=== PATIENT | female | born 1960 | race Caucasian/White ===

== ENCOUNTER 2023-04-25 08:12 | Outpatient (REF) | payer BC, SELFPAY ==
--- NOTE | ~2023-04-25 | XR_ITS ---
EXAMINATION: XR HAND, LEFT CLINICAL INFORMATION: Pain COMPARISON: None available. TECHNIQUE: PA, lateral, and oblique views of the left hand. FINDINGS: There is a nondisplaced fracture of the distal phalanx of the thumb intra-articular with the IP joint. No other fracture. Mild osteoarthritis at the IP joints. Soft tissues are unremarkable. XR/XR hand LT min 3V IMPRESSION: Fracture of the proximal phalanx of the thumb intra-articular with the IP joint Findings will be communicated by the [place] work flow cutting supervisor
== END 2023-04-25 08:13 | disposition home or self-care (01) ==
LOC: HO.HOSX 08:12
PROVIDERS: Visit Provider Physician Assistant
DX: S62.502A Fracture of unspecified phalanx of left thumb, initial encounter for closed fracture (principal)
CPT/HCPCS: 29085; 73130

== ENCOUNTER 2023-05-27 11:28 | Outpatient (REF) | payer BC, SELFPAY ==
--- NOTE | ~2023-05-27 | XR_ITS ---
EXAMINATION: XR HAND, LEFT CLINICAL INFORMATION: Pain COMPARISON: 04/25/23 left hand radiographs. TECHNIQUE: PA, lateral, and oblique views of the left hand. FINDINGS: There is a nondisplaced intra-articular fracture of the distal phalanx redemonstrated. There is increased sclerosis consistent with partial interval healing. No new fracture. Stable osteoarthritis at the IP joints. Soft tissues are unremarkable. XR/XR hand LT min 3V IMPRESSION: There is a nondisplaced intra-articular fracture of the distal phalanx redemonstrated. There is increased sclerosis consistent with partial interval healing.
== END 2023-05-27 11:29 | disposition home or self-care (01) ==
LOC: HO.HOSX 11:28
PROVIDERS: Visit Provider Physician Assistant
DX: S62.502D Fracture of unspecified phalanx of left thumb, subsequent encounter for fracture with routine healing (principal)
CPT/HCPCS: 73130

== ENCOUNTER 2023-05-27 14:22 | Outpatient (AMB) | payer BC, SELFPAY ==
--- NOTE | 2023-05-27 14:45 | A.OFFVIS_ITS ---
Intake Vital Signs 05/27/23 14:54 Height 5 ft 4 in Weight 150 lb BMI 25.7 Intake Visit Reasons: OV-Fracture of left fingers-w/XR Intake Note: Evonne is a 62 year old female who presents today for a follow up of avulsion fracture of left thumb, 02/17/23. Cast removed and xrays updated. Patient reports pain in her thumb that radiates down her forearm. She has sharp pain in wrist area. Numbness and tingling in thumb, 2nd and 3rd digit. States felt cast was too tight on her thumb. Patient has an increase in pain with cast removed. Allergies sulfamethoxazole [From Bactrim] Allergy (Severe, Verified 04/25/23 10:35) throat swelling trimethoprim [From Bactrim] Allergy (Severe, Verified 04/25/23 10:35) throat swelling HPI OV-Fracture of left fingers-w/XR HPI Details 62-year-old right hand dominant female who presents in the office today for a follow up of a left thumb avulsion fracture, which occurred on 04/17/2023 status post a fall going down a water slide while the patient was in the [facility] [place]. The patient reports she has pain in her thumb that radiates to the forearm. She claims to have a sharp pain in the wrist area. She confirms numbness and tingling in the thumb, 2nd, and 3rd digits. She has a complaint that the cast was to tight on her thumb. She states she has increased pain after the cast was removed. She states the finger is throbbing. She confirms she has been work on the ROM exercises she was instructed to do. She states the pain would increase at night. The patient states she called the office a week ago about the pain, but states she did not receive a call back. Patient has a complaint of foot pain from 5 years ago. 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 She states overall she has been doing okay. She was recently placed in cast for treatment. Patient was accompanied in the office today by her . [facility] Medical History History of high blood pressure Surgical History History of ankle surgery Social History Alcohol intake: never Patient Tobacco Use Status: Never used Tobacco Current occupational status: employed Current occupation: Visiting Nurse/ Right hand dominant Review of Systems Const All systems reviewed & are unremarkable except as noted in HPI and below Physical Exam Vital Signs: BMI result Body Mass Index 25.7 Const General: cooperative, healthy appearing, comfortable, no acute distress, well developed and alert Orientation/consciousness: patient oriented x3 HEENT Head: Yes normal to inspection, Yes normocephalic and Yes atraumatic Eyes General: appearance normal, both eyes and all related structures Resp Effort & Inspection: normal respiratory effort and able to speak in complete sentences Cardio Rate: regular rate Peripheral pulses: Peripheral pulses 2+ throughout GI Palpation (GI): Soft to palpation Skin Lesions: no lesions Rashes: no rashes Neuro General: patient oriented x3 Extrem Other: Left hand: Tenderness to palpation at the IP joint, CMC joint of the left thumb extending to the radial aspect of the wrist. Anatomical snuffbox and scaphoid tubercle tenderness. Significant stiffness in all digits and wrist. Medial nerve distribution numbness and tingling on the thumb and index finger on the volar aspect of the hand. Capillary refill is brisk. Assessment & Plan Assessment & Plan (1) Avulsion fracture of left thumb: Code(s): S62.502A - Fracture of unspecified phalanx of left thumb, initial encounter for closed fracture Plan Ms. Hung is a 62-year-old right hand dominant female who presents in the office today for a follow up of a left thumb avulsion fracture, which occurred on 04/17/2023 status post a fall going down a water slide while the patient was in the [facility] [place]. The patient reports she has pain in her thumb that radiates to the forearm. She claims to have a sharp pain in the wrist area. She confirms numbness and tingling in the thumb, 2nd, and 3rd digits. She has a complaint that the cast was to tight on her thumb. She states she has increased pain after the cast was removed. She states the finger is throbbing. She confirms she has been work on the ROM exercises she was instructed to do. She states the pain would increase at night. The patient states she called the office a week ago about the pain, but states she did not receive a call back. Patient has a complaint of foot pain from 5 years ago. 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 She states overall she has been doing okay. She was recently placed in cast for treatment. Patient was accompanied in the office today by her . Dr. June was available to see the patient with me while in the office today and a collaborative treatment plan was made. She will be referred for a stat MRI for further evaluation of the scaphoid and thumb. She will be placed in a velcro wrist splint, off the shelf, while in the office today. She can only take the splint off for hygiene purposes and to work on the exercises demonstrated in the office. She is not to lifting anything heavier then a cell phone or coffee cup. She can perform any high impact activities with the left hand. She was demonstrated exercises for the hand, digits, and wrist for the patient to work on while at home by Dr. June, which she demonstrates understanding. Dr. June also instructed her to touch the hand and allow the digits to touch objects to help with the sensation and sensitivity in the hand. She demonstrated understanding to this as well. She was instructed to call the office next week if she has not heard from them. In the event the patient is still feeling numbness and tingling the next step would be to order an EMG for further evaluation. Follow up will be in 2 weeks, or sooner if needed. X-rays of the left hand which were obtained while in the office today and were reviewed by me, Megan Mason PA-C, revealed routine healing of fracture of the proximal phalanx of the thumb intra-articular with the IP joint Orders: Orders XR hand LT min 3V 05/27/23 M79.643 - Pain in unspecified hand MR wrist LT wo con 05/27/23 S62.502A - Fracture of unspecified phalanx of left thumb, initial encounter for closed fracture Patient Instructions: Scribed for Megan Mason PA-C by Margareth Ospina medical field representative, on 05/27/2023 at 2:45 pm, EST. Your attestation Coding Level of Care Code Global (28044) Diagnoses Avulsion fracture of left thumb S62.502A
[2023-05-27 14:54] VITALS: BMI 25.7
== END 2023-05-27 15:25 | disposition home or self-care (01) ==
PROVIDERS: PCP Internal Medicine; Visit Provider Physician Assistant
DX: S62.502A Fracture of unspecified phalanx of left thumb, initial encounter for closed fracture (principal)
CPT/HCPCS: 99024

== ENCOUNTER 2023-06-22 08:46 | Outpatient (AMB) | payer BC, SELFPAY ==
[2023-06-22 08:51] VITALS: BMI 25.7
--- NOTE | 2023-06-22 08:51 | A.OFFVIS_ITS ---
Intake Vital Signs 06/22/23 08:51 Height 5 ft 4 in Weight 150 lb BMI 25.7 Intake Visit Reasons: OV-Fracture of left fingers-w/XR Intake Note: Evonne is a 62 year old female who presents today for a follow up visit for her avulsion fracture of left thumb, DOI 02/17/23 s/p falling down while vacationing in [facility]. Patient last seen with Mark Mason on 05/27/23 who sent patient for MRI study. Patient cast was removed on 05/27/23 and placed in a velcro wrist brace. Currently states she cont's to have pain and throbbing in thumb. Reports her thumb feels as if it is going to lock, hears clicking in thumb, cont's to wear wrist brace. Patient would also like to review MRI and CTS. No EMG done. Pain is currently at 8/10 on pain scale. Allergies sulfamethoxazole [From Bactrim] Allergy (Severe, Verified 06/22/23 08:51) throat swelling trimethoprim [From Bactrim] Allergy (Severe, Verified 06/22/23 08:51) throat swelling HPI OV-Fracture of left fingers-w/XR HPI Details Evonne is a 62 year old right hand dominant woman who presents for an MRI review of her left thumb and wrist pain. She had a left thumb distal phalanx base fracture that went on to heal well with cast treat. DOI: 02/17/23. This occurred while she slipped and fell by a hotel pool on vacation in [facility] [place]. She complains of continued pain in her thumb, along with a throbbing sensation. She was given a brace to wear by BAILEY Guzman on 05/27/23, and she continues to wear this. She feels her thumb is going to lock at times and reports a clicking sensation in her thumb. She says she had been seen for right sided wrist pain in the past at [facility], was given a steroid injection for de Quervain, and referred to a clinic in [place] to assess for De Quervains. She reports she had all kinds of problems and ended up having surgery. This is doing well now. She has a fairly long, healed surgical scar on the radial aspect of her right distal forearm. 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 [facility] Medical History History of high blood pressure Surgical History History of ankle surgery Social History Alcohol intake: never Patient Tobacco Use Status: Never used Tobacco Current occupational status: employed Current occupation: Visiting Nurse/ Right hand dominant Review of Systems Const All systems reviewed & are unremarkable except as noted in HPI and below Physical Exam Vital Signs: BMI result Body Mass Index 25.7 Const General: cooperative, healthy appearing and no acute distress Orientation/consciousness: patient oriented x3 HEENT Head: Yes normocephalic and Yes atraumatic Eyes EOM: EOMs intact bilaterally Resp Effort & Inspection: normal respiratory effort and able to speak in complete sentences Cardio Jugular venous distension: no JVD Skin General skin exam: turgor normal Rashes: no rashes Neuro General: patient oriented x3 Extrem Other: Evaluation of Left Upper Extremity: The patient is alert, oriented, and in no acute distress Neuro: Median, Ulnar, Radial nerves motor and sensory intact and sensation is normal to the tips of all digits Vascular: Cap refill brisk ROM: With encouragement she could demonstrate active flexion and extension of the thumb No locking, catching, or triggering She did have a cracking sound in the IP joint of the thumb Skin: No lacerations or abrasions. General: No Ecchymosis. No Erythema or evidence of infection. DIP joint pain 8/10 according to patient, and more generalized pain extending up the dorsal aspect of the thumb to the radial aspect of the wrist. However the most painful area with 1 finger was the D IP joint. Pain in the MCP joint, IP joint, and 1st dorsal compartment Apprehensive to have me touch her anywhere about the thumb Radiographs: 3 views of the left thumb were taken, viewed, and compared to prior radiographs today in clinic. They show a healed fracture of the volar ulnar base of the distal phalanx, with satisfactory fracture alignment. She has some osteoarthritic changes in the thumb IP and basal joints MRI: Outside MRI, report only available, and scanned into chart IMPRESSION: 1. Healing fracture at the medial margin of the thumb distal phalangeal base. No new fractures are identified 2. Moderate OA in the thumb IP joint and 1st CMC joint. More mild OA in the 1st MCP joint. 3. Intact ligaments Please see scanned report for additional details Connor Mendez. 06/10/23 Psych Appearance: grossly normal Affect: normal affect Attitude: cooperative Assessment & Plan Assessment & Plan (1) Fracture of distal phalanx of left thumb: Code(s): S62.522A - Displaced fracture of distal phalanx of left thumb, initial encounter for closed fracture (2) Arthritis of carpometacarpal (CMC) joint of left thumb: Code(s): M18.12 - Unilateral primary osteoarthritis of first carpometacarpal joint, left hand (3) Stiffness of left hand joint: Code(s): M25.642 - Stiffness of left hand, not elsewhere classified Plan Assessment & Plan: 1. Left thumb distal phalanx fracture DOI: 02/17/23 I educated her about this condition & reviewed her MRI with her This has gone on to heal No further treatment indicated 2. Left thumb stiffness Secondary to immobilization following her distal phalanx fracture 3. Left basal joint, MCP joint, and IP joint osteo arthritis I educated her about these conditions I demonstrated ROM exercises in clinic that she will perform at home She will discontinue her Velcro wrist splint at this time I ordered OT hand therapy to work on ROM, desensitization, and normalizing hand function I discussed activity modification, she is to avoid ay heavy or repetitive pinching or gripping activities She will work on ROM exercises at home and use her hand for light weight activities She can follow up prn Please note that greater than 30 minutes was spent with this patient going over the history, evaluating the patient and radiographs, formulating possible treatment options, discussing them with the patient, and documenting the visit. Scribed for Kelly June MD by Darrell Hammond, medical records coder, on 06/22/23 at 9:25 AM, EST. Orders: Orders XR hand LT min 3V Today M79.642 - Pain in left hand OT Evaluation and Treatment Today M18.12 - Unilateral primary osteoarthritis of first carpometacarpal joint, left hand, M25.642 - Stiffness of left hand, not elsewhere classified, S62.522A - Displaced fracture of distal phalanx of left thumb, initial encounter for closed fracture Coding Level of Care Code Est Pt Level 4 (80175) Diagnoses Fracture of distal phalanx of left thumb S62.522A Arthritis of carpometacarpal (CMC) joint of left thumb M18.12 Stiffness of left hand joint M25.642
== END 2023-06-22 09:30 | disposition home or self-care (01) ==
PROVIDERS: PCP Internal Medicine; Visit Provider Orthopaedic Surgery
DX: S62.522D Displaced fracture of distal phalanx of left thumb, subsequent encounter for fracture with routine healing (principal); M18.12 Unilateral primary osteoarthritis of first carpometacarpal joint, left hand; M25.642 Stiffness of left hand, not elsewhere classified
CPT/HCPCS: 99214

== ENCOUNTER 2023-06-22 12:43 | Outpatient (REF) | payer BC, SELFPAY ==
--- NOTE | ~2023-06-22 | XR_ITS ---
EXAMINATION: XR HAND, LEFT CLINICAL INFORMATION: Pain COMPARISON: None available. TECHNIQUE: PA, lateral, and oblique views of the left hand. FINDINGS: There is loss of PIP and DIP joint space with no bony erosive changes. There is minimal periarticular spurring DIP joint fifth digit. No visible acute fracture or dislocation especially no abnormality involving the first metacarpal. The soft tissues are normal. XR/XR hand LT min 3V IMPRESSION: Mild degenerative changes left hand.
== END 2023-06-22 12:44 | disposition home or self-care (01) ==
LOC: HO.HOSX 12:43
PROVIDERS: Visit Provider Orthopaedic Surgery
DX: S62.522A Displaced fracture of distal phalanx of left thumb, initial encounter for closed fracture (principal); M18.12 Unilateral primary osteoarthritis of first carpometacarpal joint, left hand
CPT/HCPCS: 73130

== ENCOUNTER 2023-07-26 10:30 | Outpatient (RCR) | payer BC, SELFPAY ==
--- NOTE | 2023-06-29 14:56 | MHC.OT.EP ---
[address] [phone] Occupational Therapy Plan of Care Patient Name: Evonne Hung Date of Evaluation: 06/29/23 Diagnosis: Left thumb distal phalanx base fracture L CMC arthritis Pain Location: Pain in L thumb Current: 9/10 Best: 8/10 Pain Score: 9 Pain Scale Used: Numeric (0 - 10) Aggravating Factors: Any movement, gripping Alleviating Factors: Ice, advil, rest Assessment: Pt is a 62 y/o female who presents s/p L thumb distal phalanx base fracture on 04/17/23, cast removed on 05/27/23. Splint was recently discharged by Dr. June. Pts primary complaint is constant 8/10 pain throughout L thumb, stiffness in MCP/DIP joints, and decreased functional use. Pt reports some catching and hears clicking in thumb with active range. Gross supervisor tile and mottle strength is 45# on the R compared to 10# on the left. An 88.6% limitation is reported per the Quick DASH assessment. Pt would benefit from skilled OT services to address noted barriers and assist in return to PLOF. Frequency and Duration: The patient will be seen 2x/wk for 6 weeks Short Term Goals: Decrease L thumb pain <5/10 Improve L thumb MCP flex and radial Abd by 10 degrees Initiate desensitizing and ROM [employer] functional use to grasp coffee cup with L hand Tactical Debriefer Officer Goals: Pain free with BADL's/IADL's Improve L thumb AROM to WNL's Gross grasp >30# Improve FMC to WFL's for increased ease with work tasks Quick DASH <25% Treatment Plan: Therapeutic Exercise Therapeutic Activity Home Exercise Program Patient Education Desensitization/Sensory Re-ed Ultrasound Iontophoresis Fluidotherapy MHP Cold Packs Joint Mobilization Soft Tissue Mobilization Electronically Signed By: Apryl Velásquez MS OTR/L Please Sign and return to therapist. Thank you once again for your referral.
== END 2023-09-14 10:51 | disposition home or self-care (01) ==
LOC: HO.OT 10:30
PROVIDERS: PCP Internal Medicine; Visit Provider Orthopaedic Surgery
DX: M25.642 Stiffness of left hand, not elsewhere classified (principal); M18.12 Unilateral primary osteoarthritis of first carpometacarpal joint, left hand; S62.522D Displaced fracture of distal phalanx of left thumb, subsequent encounter for fracture with routine healing
CPT/HCPCS: 97033; 97035; 97110; 97165